=== PATIENT | male | born 1985 | race Caucasian/White ===

== ENCOUNTER 2018-03-30 08:38 | Emergency (ER) | payer SELFPAY ==
[~2018-03-30] VITALS: Ht 167.6 cm; Wt 83.9 kg
[2018-03-30 08:48] VITALS: Ht 167.6 cm; Wt 83.9 kg
[2018-03-30 09:19] VITALS: BP 131/70
== END 2018-03-30 10:49 | disposition home or self-care (01) ==
LOC: ED 08:38
DX: S42.032A Displaced fracture of lateral end of left clavicle, initial encounter for closed fracture (principal); S09.8XXA Other specified injuries of head, initial encounter; Z88.1 Allergy status to other antibiotic agents; V29.49XA Motorcycle driver injured in collision with other motor vehicles in traffic accident, initial encounter; Y93.89 Activity, other specified; Y92.89 Other specified places as the place of occurrence of the external cause; Y99.8 Other external cause status
CPT/HCPCS: J1885

== ENCOUNTER 2018-07-06 12:37 | Emergency (ER) | payer OTHER ==
[~2018-07-06] VITALS: Ht 167.6 cm; Wt 83.0 kg
[2018-07-06 13:15] VITALS: Ht 167.6 cm; Wt 83.0 kg
[2018-07-06 18:18] VITALS: BP 130/84
== END 2018-07-06 18:18 | disposition home or self-care (01) ==
LOC: ED 12:37
DX: S61.411A Laceration without foreign body of right hand, initial encounter (principal); Z88.1 Allergy status to other antibiotic agents; W01.110A Fall on same level from slipping, tripping and stumbling with subsequent striking against sharp glass, initial encounter; Y93.89 Activity, other specified; Y92.89 Other specified places as the place of occurrence of the external cause; Y99.8 Other external cause status
CPT/HCPCS: Q0092